=== PATIENT | female | born 2000 | race Caucasian/White ===

== ENCOUNTER 2024-01-27 19:23 | Emergency (ER) | payer OTHER ==
[~2024-01-27] VITALS: Ht 160 cm; Wt 77.1 kg
[2024-01-27] MEDS ORDERED: HALOPERIDOL LACTATE INJ 5 MG/ML VIAL ONE (19:55)
[2024-01-27] MEDS ORDERED: HALOPERIDOL LACTATE INJ 5 MG/ML VIAL IV ONE (20:00)
[2024-01-27] MEDS: HALOPERIDOL LACTATE INJ 5 MG/ML VIAL IV ONE (20:11)
[2024-01-27] MEDS: IV NS 0.9% 1,000 ML BAG IV ONE (20:11)
[2024-01-27 20:14] LABS: BASOPHILS % (AUTO) 0.4 % (0.0-2.0); EOSINOPHILS % (AUTO) 0.1 % (0.0-6.0); HEMATOCRIT 40 % (33-45); HEMOGLOBIN 13.5 g/dL (11.5-14.8); LYMPHOCYTES # (AUTO) 0.7 K/uL (0.8-4.8); LYMPHOCYTES % (AUTO) 5.6 % (20.0-44.0); MEAN CORPUSCULAR HEMOGLOBIN 30 PG (26.0-33.0); MEAN CORPUSCULAR HGB CONC 33 g/dl (31.0-36.0); MEAN CORPUSCULAR VOLUME 89 fL (82-100); MONOCYTES # (AUTO) 0.2 K/uL (0.1-1.30); MONOCYTES % (AUTO) 1.8 % (2.0-12.0); NEUTROPHILS % (AUTO) 92.1 % (43.0-81.0); PLATELET COUNT (AUTO) 257 K/uL (150-450); RED BLOOD CELL COUNT(AUTO) 4.52 MIL/uL (4.0-5.2); RED CELL DISTRIBUTION WIDTH 12.6 % (11.5-15.0)
[2024-01-27 20:37] LABS: ALBUMIN 4.3 g/dL (3.4-5.0); BILIRUBIN,TOTAL 0.4 mg/dL (0.2-1.0); CALCIUM, SERUM 9.2 mg/dL (8.5-10.1); CREATININE 0.7 mg/dL (0.6-1.3); POTASSIUM 4.5 mmol/L (3.5-5.1); TOTAL PROTEIN, SERUM 8.3 g/dL (6.4-8.2)
[2024-01-27] MEDS ORDERED: METOCLOPRAMIDE HCL 10 MG/2 ML VIAL ONE (20:37)
[2024-01-27] MEDS: METOCLOPRAMIDE HCL 10 MG/2 ML VIAL IV ONE (20:45)
[2024-01-27] MEDS ORDERED: diphenhydrAMINE HCL 50 MG/ML VIAL ONE (21:38)
[2024-01-27] MEDS ORDERED: ONDANSETRON HCL/PF 4 MG/2 ML VIAL ONE (21:38)
[2024-01-27] MEDS ORDERED: ONDA4TAB11 PO (21:41)
[2024-01-27] MEDS: ONDANSETRON HCL/PF - ER 4 MG/2 ML VIAL IV ONE (21:43)
[2024-01-27] MEDS: diphenhydrAMINE HCL 50 MG/ML VIAL IV ONE (21:43)
[2024-01-27 22:00] VITALS: BP 130/79; TEMP 98.1; O2SAT 97
== END 2024-01-27 22:01 | disposition home or self-care (01) ==
LOC: ER 19:27
DX: R11.2 Nausea with vomiting, unspecified (principal); Z88.0 Allergy status to penicillin
CPT/HCPCS: 99284; 96374; 96361; 96375 ×3; 85025; 83690; 36415; 80053; 84702; J1200; J1630; J2765; J2405 ×2; J7030